=== PATIENT | male | born 1970 | race Caucasian/White ===

== ENCOUNTER 2018-12-26 05:42 | Day surgery (SDC) | payer BC ==
[2018-12-26] VITALS (19 sets, daily range): BP systolic 102–147; BP diastolic 25–86; Ht 170.2 cm; Wt 139.3 kg
[~2018-12-26] VITALS: Ht 170.2 cm; Wt 139.3 kg
[~2018-12-26 05:42] MED LIST: MEDROL DOSE PACK4 MG PO; NEURONTIN 300300 MG PO
[2018-12-26] MEDS ORDERED: BENADRYL50 MG PO (06:15)
--- NOTE | 2018-12-26 06:15 | NUR ---
PT REC'D TO ROOM CVO1 ACCOMPANIED BY FAMILY, PT AWAKE ,ALERT, ORIENTED X 4, ALL MONITORS ESTABLISHED, CM-SR @ 63, O2 SAT 98% ON ROOM AIR, HISTORY OBTAINED, SR UP X 2, BED IN LOW POSITION, CALL LIGHT IN REACH.
--- NOTE | 2018-12-26 06:25 | NUR ---
20 GAUGE ATTEMPTED TO RIGHT FOREARM BY Jesus MONTES DE OCA RN.
--- NOTE | 2018-12-26 06:40 | NUR ---
20 GAUGE PLACED TO RIGHT FOREARM X 2 ATTEMPTS BY Kentrell JEAN-BAPTISTE RN, LR PLACED AT [facility].
--- NOTE | 2018-12-26 07:05 | NUR ---
ANESTHESIA AT DISCUSSING PROCEDURE WITH PATIENT. CONSENTS OBTAINED AND QUESTIONS ANSWERED.
--- NOTE | 2018-12-26 07:08 | NUR ---
PREOP MEDS GIVEN ORDERED, SCOLPALAMINE PATCH PLACED BEHIND LEFT EAR, PT DENIES PAIN OR FURTHER NEEDS, FAMILY REMAINS AT BS, CALL LIGHT IN REACH
--- NOTE | 2018-12-26 07:29 | NUR ---
RECIEVED AWAKE AND ALERT -SPEAKING WITH ANESTHESIA REGARDING ASSESSMENT PRE OP -LATEX ALLERGY UPDATED-CONSENTS REVIEWED AND SIGNED AND WITNESSED PER POLICY-PREOR NURSE AT [facility] AND REVIEWED WITH PT REGARDING EXPECTATION AND PRIOR COURSE OF EVENTS-NOTED REVIEW OF CHART NO BMP AND HEMOGRAM FOUND -ORDERED STAT- PRESENT-NPO MAINTAINED
[2018-12-26 08:08] LABS: HEMATOCRIT 42.8 % (42.0-54.0); HEMOGLOBIN 13.9 g/dL (13.5-17.5); MCH 31.6 pg (26.0-34.0); MCHC 32.5 g/dL (31.0-37.0); MCV 97.3 fL (80.0-100.0); MEAN PLATELET VOLUME 9.1 fL (7.4-10.4); RBC 4.4 10x6/uL (4.20-6.10); RDW 12.6 % (11.5-14.5); WBC 10.3 10x3/uL (4.8-10.8)
--- NOTE | 2018-12-26 08:09 | NUR ---
OR NURSE SUBSTANCE ABUSE CALLED [facility] AND STATED TO INFORM PT OF DELAY AND STATE QUESTIONING STERILITY OF EQUIPMENT AND RESTERLIZING-STRESSED TO STAFF MEMBER PT SURGEON AND POSSIBLY UN-NERVE HIM-STAFF MEMBER STATED WILL APPRECIATE AND UNDERSTAND-SAME DELIVERED TO PT AND -NOTED LAB DRAWN ORDERED -PT EXPRESSED APPRECIATION OF NOTICE OF DELAY
[2018-12-26 08:16] LABS: CALC OSMOLALITY 288 mosm/kg (275-300); CARBON DIOXIDE 31.3 mmol/L (21.0-32.0); CHLORIDE - SERUM 107 mmol/L (98-107); CREATININE - SERUM 0.9 mg/dL (0.6-1.3); GLUCOSE 118 mg/dL (74-106); POTASSIUM - SERUM 4.8 mmol/L (3.5-5.1); SODIUM 144 mmol/L (136-145); UREA NITROGEN 16 mg/dL (7-18); eGFR NON AFRICAN AMERICAN > 90 mL/min (90-120)
--- NOTE | 2018-12-26 09:06 | NUR ---
0820-PT TO OR VIA BED- PROVIDED CELL NUMBER TO OR FOR CONTACT NEEDED
--- NOTE | 2018-12-26 10:04 | NUR ---
[facility] REF [id number] S/N- [id number] EXP 08/10/20
--- NOTE | 2018-12-26 12:40 | NUR ---
1.ANGELICA LOT# [id number] REF# [id number] [facility] 1
--- NOTE | 2018-12-26 15:39 | NUR ---
1450-RECIEVED FROM RECOVERY-NECK INCISION INTACT-LOG ROLLED TO R SIDE-INCISION DRG DRY AND INTACT-WHITING TO ALL EXTREMITIES= AND STRONG--REPORTS TINGLING R THUMB AND FORE FINGER-NEW AND TINGLING TO L THUMB AND FOREFINGER OLD-PAIN LEVEL 07/24-PRIMARILY TO BASE OF NECK TO LEFT SIDE-STATED ALWAYS EXPERIENCES NAUSEA AND VMITING POST OP -ZOFRAN 4MG IVP GIVEN 1505-ABLE TO EASILY TAKE CLEAR LIQUIDS-NORCO 10MG AND ROBAXIN GIVEN 07/24 1530-FAMILY REMAINS WITH PT-HOB ELEVATED TO 60 AT PT REQUEST-GUZMAN CATH IN PLACE-CLEAR SHANNAN URINE
--- NOTE | 2018-12-26 17:08 | NUR ---
NOTIFIED DR TEJADA OF PT STATEMENT-R THUMB AND FORE FINGER NUMB AND [id number] NOT RESOLVE WITH ROBAXIN -CONTINUED L HAND THUMB AND FOREFINGER [id number] AT BASE OF NECK-R FOREARM IV SALINE LOCKED
--- NOTE | 2018-12-26 19:00 | NUR ---
PT REPORT RECEIVED FROM DAY SHIFT NURSE. NO SIGNS OF DISTRESS NOTED. VSS. WILL CONTINUE TO MONITOR
--- NOTE | 2018-12-26 21:00 | NUR ---
PT RESTING IN BED. FAMILY AT BEDSIDE. VSS. NO COMPLAINTS NOTED AT THIS TIME. WILL CONTINUE TO MONITOR
--- NOTE | 2018-12-26 23:00 | NUR ---
PT RESTING IN BED. FAMILY AT BEDSIDE. NO SIGNS OF DISTRESS NOTED. REASSESSMENT COMPLETED. PT HAS CPAP FROM HOME ON. WILL CONTINUE TO MONITOR
[2018-12-27] VITALS (9 sets, daily range): BP systolic 96–124; BP diastolic 37–78
--- NOTE | 2018-12-27 01:00 | NUR ---
PT RESTING IN BED COMFORTABLY. EASILY AROUSED. VSS. WILL CONTINUE TO MONITOR
--- NOTE | 2018-12-27 03:00 | NUR ---
PT RESTING IN BED. REASSESSMENT COMPLETED. PT STATES THAT HE SLEEPS ON AND OFF. NO CURRENT NEEDS AT THIS TIME. WILL CONTINUE TO MONITOR
--- NOTE | 2018-12-27 05:00 | NUR ---
PT RESTING IN BED. FAMILY AT BEDSIDE. NO COMPLAINTS NOTED AT THIS TIME. WISHES FOR GUZMAN CATHETER TO BE TAKEN OUT AT 0600. VSS. WILL CONTINUE TO MONITOR
--- NOTE | 2018-12-27 06:00 | NUR ---
REMOVED PT GUZMAN. PT TOLERATED WELL. INSTRUCTED PT TO USE URINAL IF HE NEEDED TO URINATE. PT VERBALIZED UNDERSTANDING. WILL CONTINUE TO MONITOR
--- NOTE | 2018-12-27 08:02 | NUR ---
RECIEVED AWAKE AND ALERT -SITTING UP AT SIDE OF BED-STATES INCISIONAL PAIN-AT 5-PAIN PRIOR TO SURGERY-3
--- NOTE | 2018-12-27 12:35 | NUR ---
0900-AMBULATED IN HALLWAY WITH PHYSICAL THERAPY-SEE NOTE 0930-R IV D/C-TIP INTACT 1150-DR TEJADA AT [facility] 1230-PT SENT HOME WITH PRESCRIPTIONS AND INTSTRUCTIONS-STRESSED TO WEAR COLLAR FOR TRIP HOME AND PLACED ON PT-
--- NOTE | 2019-01-05 20:19 | OP ---
PATIENT NAME: CHRISTIANE HELLER MEDICAL RECORD: [id number] :66 LOCATION:[facility] ADMISSION DATE: SURGEON: LM PUGA MD DATE OF OPERATION: 12/26/2018 SURGEON: Lm Puga MD PREOPERATIVE DIAGNOSES: Cervical myelopathy secondary to osteophyte formation and disc herniation at C3-C4 and left C8 radiculopathy secondary to severe foraminal stenosis at C7-T1 on the left. PROCEDURE: 1. Anterior cervical discectomy and fusion at C3-C4 with Zavation plate and screws and separate PEEK interbody cage, Hannah bone allograft. 2. Left posterior cervical foraminotomy at C7-T1 on the left. DESCRIPTION AND TECHNIQUE: After induction of general endotracheal anesthesia, the patient was positioned supine on the operating table. Neck was prepped and draped in usual sterile fashion. Fluoroscopic x-ray and freer localized the C3-C4 interspace. After infiltration of 1:100,000 epinephrine with 1% lidocaine, a transverse skin incision was carried out from the midline to the sternocleidomastoid muscle. The platysma was divided with a sharp dissection with a #15 blade. Using blunt and sharp dissection with Metzenbaum scissors, I proceeded in avascular plane medial to the carotid sheath. The C3-C4 interspace was identified with fluoroscopic x-ray and spinal needle. The longus colli muscles were elevated from bodies of C3 and C4. Self-retaining retractors placed deep to the longus colli muscles. Osteophytes were removed anteriorly with an Adson rongeurs. [place] distracting pins were placed by the C3 and C4. The disc space was incised under distraction. A microscope and Midas Johann drill were used to remove osteophytes posteriorly. The posterior longitudinal ligament was removed with Cloward rongeurs. Foraminotomies were carried out on both sides with Cloward rongeurs. A PEEK interbody cage filled with Hannah bone allograft was placed in the disc space under distraction. [place] pins were removed. A Zavation anterior cervical plate and screws was used to span the C3-C4 interspace. Self-drilling screws were placed through the holes in the plate. Locking cams were tightened down over the screw heads. Good position of the hardware was confirmed with fluoroscopic x-ray. Meticulous hemostasis was maintained throughout the wound. Wound was irrigated with copious amounts of Ancef irrigant solution. The platysma and subdermal layer closed with interrupted 3-0 Vicryl suture. The skin was reapproximated with Steri-Strips and benzoin. A sterile dressing was applied to the wound. The patient was awakened in good condition and taken to recovery. All counts were reported as correct. Estimated blood loss is minimal. PROCEDURE #2: Left posterior cervical foraminotomy at C7-T1: After completion of the anterior cervical discectomy. The patient was placed in [place] head pin and was rolled prone on chest and hip rolls. Posterior neck was prepped and draped in usual sterile fashion. Fluoroscopic x-ray and spinal needle localized at left C7-T1 interspace. A stab incision was created with a #11 blade on the left at C7-T1 and a Pj retractor was advanced through the fascia until the C7 and T1 laminae were exposed in a subperiosteal manner with Bovie cautery. A microscope and Midas Johann drill were used to perform laminotomy, medial facetectomy and foraminotomy at C7-T1 on the left. Hypertrophied ligamentum flavum was removed with Cloward rongeurs. Further foraminotomy was carried out with a 2 mm Cloward punch on the left foramen. Following this, a good OPERATIVE REPORT [id number] CHRISTIANE HELLER decompression of the left C8 nerve roots was accomplished. The wound was irrigated with copious amounts of Ancef irrigant solution. The retractor was removed. The fascia was closed with 2-0 Vicryl suture. The skin was closed with coy. Sterile dressing was applied to the wound. The patient was awakened in good condition and taken to recovery. All counts were reported as correct. Estimated blood loss was minimal. TRANSINT:[id number] Voice Confirmation ID: [id number] DOCUMENT ID: [id number] LM PUGA MD at 2019 CC: [id number] DICTATION DATE: 12/31/18 1241 UPPER EXTREMITY SURGEON: 12/31/18 1315 [facility] 12/27/18 [place] [address]
== END 2018-12-27 13:00 | disposition home or self-care (01) ==
LOC: OBSVTIME → D.CVICU 05:42 → D.OPS 05:42 → D.PAN 08:00 → OBSVTIME 13:51 → D.OPS 13:51 → D.CVICU 13:51 → D.OPS 12-27 13:00
PROVIDERS: ATTEND Neurological Surgery
DX: M50.01 Cervical disc disorder with myelopathy, high cervical region (principal); M54.13 Radiculopathy, cervicothoracic region; M48.03 Spinal stenosis, cervicothoracic region